=== PATIENT | male | born 2000 | race Caucasian/White ===

== ENCOUNTER 2018-11-08 00:27 | Emergency (ER) | payer BC, OTHER ==
[2018-11-08 00:30] VITALS: BP 135/66
--- NOTE | 2018-11-08 01:13 | ER Report ---
History and Physical Time Seen By MD: 00:50 Hx. of Stated Complaint: Patient accidently stepped on a piece of broken glass, has a small puncture to the bottom of right heel. HPI/ROS CHIEF COMPLAINT: puncture wound on heel from glass HISTORY OF PRESENT ILLNESS: This is a 18 year old male. Walking barefoot tonight, stepped on some glass, puncturing his right heel. Washed it and was worried there might still be glass there. Allergies: Coded Allergies: No Known Drug Allergies (Unverified , 05/11/16) Home Meds Active Scripts Cephalexin Monohydrate (CEPHALEXIN) 500 Mg Cap, 500 MG PO Q6H, #20 CAP 0 Refills Prov:ELTON TEJEDA MD 11/08/18 Reviewed Nurses Notes: Yes Constitutional Vital Sign - Last 24 Hours 11/08/18 00:30 Temp 98.7 Pulse 77 Resp 16 B/P (MAP) 135/66 Pulse Ox 93 Physical Exam General: Alert, no distress. Skin: Puncture, central right heel. Washed and probed with a cotton tipped swab, feel like the swab was getting caugh. Medical Decision Making ED Course/Re-evaluation ED Course Numbed the skin with 1% lidocaine without epinephrine and 0.5% bupivacaine without epinephrine. Scrubbed the wound and explored with forceps. No foreign material. Dressed with a bandage. Tetanus booster given. Cephalexin 500mg 4 times a day for 5 days. Decision to Disposition Date: Nov 08, 2018 Decision to Disposition Time: 01:17 Depart Departure Latest Vital Signs Vital Signs Date Time Temp Pulse Resp B/P (MAP) Pulse Ox O2 Delivery O2 Flow Rate FiO2 11/08/18 00:30 98.7 77 16 135/66 93 Impression: Primary Impression: Puncture wound of foot Condition: Improved Disposition: HOME OR SELF-CARE New Scripts Cephalexin Monohydrate (CEPHALEXIN) 500 Mg Cap 500 MG PO Q6H, #20 CAP 0 Refills Prov: ELTON TEJEDA MD 11/08/18 Patient Instructions: Puncture Wound (ED) Additional Instructions: Wound Care: Wash the wound once a day with soap and water. Dry the wound and a pply a small amount of antibiotic ointment with a clean dressing. If the dressing becomes wet or dirty, repeat cleaning and dressing as above. No soaking the wound; no swimming. Pain Control: Use Tylenol or ibuprofen for pain. Using and ice pack can help r educe swelling. Cephalexin 500mg 4 times a day for 5 days. Problem Qualifiers Primary Impression: Puncture wound of foot Encounter type: initial encounter Laterality: right Qualified Codes: S91.331A - Puncture wound without foreign body, right foot, initial encounter ELTON TEJEDA MD Nov 08, 2018 01:13
[2018-11-08] MEDS ORDERED: CEPHALEXIN MONO 500 MG CAP PO ONE (01:20)
[2018-11-08] MEDS ORDERED: DIPHTH/TETANUS/ACEL. PERTUSSIS IM ONLY ONE (01:20)
[2018-11-08] MEDS ORDERED: CEPH500C24 PO (01:21)
== END 2018-11-08 01:35 | disposition home or self-care (01) ==
LOC: ER 00:55
DX: S91.331A Puncture wound without foreign body, right foot, initial encounter (principal)
CPT/HCPCS: 90471; 90715; 99283